=== PATIENT | female | born 1990 | race Caucasian/White ===

== ENCOUNTER 2023-11-27 02:59 | Emergency (ER) | payer MEDICAID ==
[~2023-11-27] VITALS: Ht 157.4 cm; Wt 66.7 kg
[2023-11-27 03:26] LABS: HEMATOCRIT 39.5 % (37.0-47.0); MANUAL DIFF REFLEX YES; MEAN CORPUSCULAR HGB 29.5 pg (27.0-31.0); MEAN CORPUSCULAR HGB CONC 33.2 g/dl (33.0-37.0); PLATELET COUNT AUTOMATED 355 10*3/uL (130-400); RED BLOOD COUNT 4.44 10*6/uL (4.10-5.10); RED CELL DISTRI WIDTH 14.4 % (0-14.5); WHITE BLOOD COUNT 21.5 10*3/uL (4.8-10.8)
[2023-11-27] MEDS ORDERED: Ondansetron Hydrochloride 4 MG TAB SL ONE (03:35)
[2023-11-27 03:52] LABS: PLATELET SUFFICIENCY NORMAL (NORMAL); TOTAL CELLS COUNTED 100 #CELLS
[2023-11-27 04:15] LABS: BILIRUBIN Negative (Negative); BLOOD Negative (Negative); CLARITY Turbid (Clear); COLOR Yellow (Yellow); GLUCOSE Negative (Negative); KETONE 1+ (Negative); LEUKO ESTERASE 1+ (Negative); NITRITE Negative (Negative); SPECIFIC GRAVITY 1.025 (1.001-1.030)
[2023-11-27 04:20] LABS: ALKALINE PHOSPHATASE 91 U/L (46-116); BUN 8 mg/dl (9-23); CHLORIDE 105 mmol/L (98-107); ETHYL ALCOHOL < 3.0 mg/dl (<3); POTASSIUM 3.6 mmol/L (3.4-5.1); SGPT/ALT 55 U/L (5-49); TOTAL PROTEIN 7.6 gm/dL (6.0-8.0)
[2023-11-27 04:22] LABS: URINE AMPHETAMINES Negative (1000ng/ml); URINE BARBITURATES Negative (200ng/ml); URINE BENZODIAZEPINES Positive (200ng/ml); URINE CANNABINOIDS (THC) Negative (50ng/ml); URINE COCAINE Negative (300ng/ml); URINE METHADONE Negative (300ng/ml); URINE OPIATES Negative (300ng/ml); URINE PHENCYCLIDINE Negative (25ng/ml)
[2023-11-27 04:39] LABS: EPITHELIAL CELLS TNTC; WBC 16-20 wbc/hpf (0-5)
[2023-11-27] MEDS ORDERED: AMOX-CLAV 875-1 EACH PO (05:34)
== END 2023-11-27 05:53 | disposition home or self-care (01) ==
LOC: ED 02:59
PROVIDERS: Internal Medicine
DX: O99.350 Diseases of the nervous system complicating pregnancy, unspecified trimester (principal); R56.9 Unspecified convulsions; O23.90 Unspecified genitourinary tract infection in pregnancy, unspecified trimester; B96.89 Other specified bacterial agents as the cause of diseases classified elsewhere; O99.119 Other diseases of the blood and blood-forming organs and certain disorders involving the immune mechanism complicating pregnancy, unspecified trimester; D72.89 Other specified disorders of white blood cells; R79.89 Other specified abnormal findings of blood chemistry; Z3A.00 Weeks of gestation of pregnancy not specified

== ENCOUNTER 2023-11-27 20:28 | Emergency (ER) | payer MEDICAID ==
[~2023-11-27] VITALS: Ht 157.4 cm; Wt 64.4 kg
[~2023-11-27 20:28] MED LIST: AMOX-CLAV 875-1 EACH PO
[2023-11-27] MEDS ORDERED: SODIUM CHLORIDE 0.9% 1,000 ML IV ONE ×2 (21:20→22:25)
[2023-11-27] MEDS ORDERED: Ondansetron Hydrochloride 4 MG/2 ML VIAL IV ONE ×3 (21:20→23:35)
[2023-11-27 21:40] LABS: HEMATOCRIT 43.5 % (37.0-47.0); MEAN CELL VOLUME 87.7 fl (81.0-99.0); MEAN CORPUSCULAR HGB 29.8 pg (27.0-31.0); MEAN PLATELET VOLUME 9.2 fl (9.6-12.3); PLATELET COUNT AUTOMATED 431 10*3/uL (130-400); RED BLOOD COUNT 4.96 10*6/uL (4.10-5.10); RED CELL DISTRI WIDTH 14.2 % (0-14.5); WHITE BLOOD COUNT 29.9 10*3/uL (4.8-10.8)
[2023-11-27 21:42] LABS: MANUAL DIFF REFLEX YES
[2023-11-27 21:57] LABS: BUN 17 mg/dl (9-23); CHLORIDE 99 mmol/L (98-107); POTASSIUM 3.6 mmol/L (3.4-5.1)
[2023-11-27 21:58] LABS: PLATELET SUFFICIENCY HIGH (NORMAL); TOTAL CELLS COUNTED 100 #CELLS
[2023-11-27 22:00] LABS: BURR CELLS FEW; ROULEAUX SLIGHT
[2023-11-27 22:01] LABS: OVALOCYTES FEW
[2023-11-28 01:57] LABS: HEMATOCRIT 37.1 % (37.0-47.0); MEAN CELL VOLUME 89.4 fl (81.0-99.0); MEAN CORPUSCULAR HGB 29.6 pg (27.0-31.0); MEAN CORPUSCULAR HGB CONC 33.2 g/dl (33.0-37.0); MEAN PLATELET VOLUME 9.3 fl (9.6-12.3); PLATELET COUNT AUTOMATED 382 10*3/uL (130-400); RED BLOOD COUNT 4.15 10*6/uL (4.10-5.10); RED CELL DISTRI WIDTH 14.4 % (0-14.5); WHITE BLOOD COUNT 29.6 10*3/uL (4.8-10.8)
[2023-11-28 01:58] LABS: MANUAL DIFF REFLEX YES
[2023-11-28 02:37] LABS: PLATELET SUFFICIENCY NORMAL (NORMAL); TOTAL CELLS COUNTED 100 #CELLS
[2023-11-28 02:44] LABS: BUN 14 mg/dl (9-23); CHLORIDE 104 mmol/L (98-107); POTASSIUM 3.3 mmol/L (3.4-5.1)
== END 2023-11-28 03:11 | disposition short-term general hospital (02) ==
LOC: ED 20:28
PROVIDERS: Internal Medicine
DX: O21.8 Other vomiting complicating pregnancy (principal); O99.281 Endocrine, nutritional and metabolic diseases complicating pregnancy, first trimester; E87.6 Hypokalemia; O99.119 Other diseases of the blood and blood-forming organs and certain disorders involving the immune mechanism complicating pregnancy, unspecified trimester; D72.829 Elevated white blood cell count, unspecified; Z3A.12 12 weeks gestation of pregnancy; Z53.29 Procedure and treatment not carried out because of patient's decision for other reasons

== ENCOUNTER 2023-12-31 10:28 | Emergency (ER) | payer MEDICAID ==
[~2023-12-31] VITALS: Ht 157.4 cm; Wt 68.0 kg
[2023-12-31] MEDS ORDERED: SODIUM CHLORIDE 0.9% 1,000 ML IV ONE ×2 (11:35→15:25)
[2023-12-31 11:54] LABS: HEMATOCRIT 40.5 % (37.0-47.0); MEAN CELL VOLUME 89.6 fl (81.0-99.0); MEAN CORPUSCULAR HGB 30.1 pg (27.0-31.0); MEAN CORPUSCULAR HGB CONC 33.6 g/dl (33.0-37.0); MEAN PLATELET VOLUME 8.9 fl (9.6-12.3); PLATELET COUNT AUTOMATED 411 10*3/uL (130-400); RED BLOOD COUNT 4.52 10*6/uL (4.10-5.10); RED CELL DISTRI WIDTH 13.9 % (0-14.5); WHITE BLOOD COUNT 21.1 10*3/uL (4.8-10.8)
[2023-12-31 11:57] LABS: MANUAL DIFF REFLEX YES
[2023-12-31] MEDS ORDERED: Ondansetron Hydrochloride 4 MG/2 ML VIAL IV ONE ×2 (12:00→16:25)
[2023-12-31] MEDS ORDERED: diphenhydrAMINE hydrochloride 50 MG/ML VIAL IV ONE (12:00)
[2023-12-31] MEDS ORDERED: ACETAMINOPHEN 325 MG TAB PO ONE (12:00)
[2023-12-31 12:13] LABS: BASOPHILS 1 % (0-1); PLATELET SUFFICIENCY HIGH (NORMAL); POLYCHROMASIA SLIGHT; TOTAL CELLS COUNTED 100 #CELLS
[2023-12-31 12:14] LABS: OVALOCYTES FEW
[2023-12-31 12:15] LABS: ALKALINE PHOSPHATASE 96 U/L (46-116); BUN 6 mg/dl (9-23); CHLORIDE 103 mmol/L (98-107); LIPASE 35 U/L (12-53); POTASSIUM 3.3 mmol/L (3.4-5.1); SGPT/ALT 14 U/L (5-49); TOTAL PROTEIN 7.8 gm/dL (6.0-8.0)
[2023-12-31] MEDS ORDERED: Promethazine Hydrochloride 25 MG/ML VIAL IM ONE (13:30)
[2023-12-31] MEDS ORDERED: FAMOTIDINE 50 ML IV ONE (13:35)
[2023-12-31] MEDS ORDERED: POTASSIUM CHLORIDE 20 MEQ TAB PO ONE (16:25)
[2023-12-31] MEDS ORDERED: REGLAN5 MG PO (16:27)
== END 2023-12-31 16:26 | disposition home or self-care (01) ==
LOC: ED 10:28
PROVIDERS: Nurse Practitioner Family
DX: O21.9 Vomiting of pregnancy, unspecified (principal); Z20.822 Contact with and (suspected) exposure to COVID-19; E87.6 Hypokalemia; E87.1 Hypo-osmolality and hyponatremia; Z3A.16 16 weeks gestation of pregnancy

== ENCOUNTER 2024-01-21 06:14 | Emergency (ER) | payer MEDICAID ==
[~2024-01-21] VITALS: Ht 157.4 cm; Wt 66.7 kg
[~2024-01-21 06:14] MED LIST changes: +REGLAN5 MG PO
[2024-01-21] MEDS ORDERED: Ondansetron Hydrochloride 4 MG/2 ML VIAL IV ONE (06:30)
[2024-01-21] MEDS ORDERED: SODIUM CHLORIDE 0.9% 1,000 ML IV ONE (06:30)
[2024-01-21 06:42] LABS: HEMATOCRIT 41.1 % (37.0-47.0); MEAN CELL VOLUME 90.1 fl (81.0-99.0); MEAN CORPUSCULAR HGB 29.6 pg (27.0-31.0); MEAN CORPUSCULAR HGB CONC 32.8 g/dl (33.0-37.0); MEAN PLATELET VOLUME 9.1 fl (9.6-12.3); PLATELET COUNT AUTOMATED 358 10*3/uL (130-400); RED BLOOD COUNT 4.56 10*6/uL (4.10-5.10); RED CELL DISTRI WIDTH 13.8 % (0-14.5); WHITE BLOOD COUNT 25.3 10*3/uL (4.8-10.8)
[2024-01-21 06:43] LABS: MANUAL DIFF REFLEX YES
[2024-01-21 07:01] LABS: BUN 8 mg/dl (9-23); CHLORIDE 101 mmol/L (98-107); POTASSIUM 3.5 mmol/L (3.4-5.1)
[2024-01-21] MEDS ORDERED: Promethazine Hydrochloride 25 MG/ML VIAL IV ONE (07:05)
[2024-01-21] MEDS ORDERED: diphenhydrAMINE hydrochloride 50 MG/ML VIAL IV ONE (07:05)
[2024-01-21 07:14] LABS: ATYPICAL LYMPHS 1 % (0-0); BASOPHILS 1 % (0-1); TOTAL CELLS COUNTED 100 #CELLS
[2024-01-21 07:17] LABS: POLYCHROMASIA SLIGHT; TOXIC GRANULATION SLIGHT; VACUOLATION OF NEUTROPHILS SLIGHT
[2024-01-21 07:18] LABS: PLATELET SUFFICIENCY NORMAL (NORMAL)
[2024-01-21] MEDS ORDERED: chlorproMAZINE Hydrochloride 50 MG/2 ML AMP IM ONE (08:15)
== END 2024-01-21 12:21 | disposition short-term general hospital (02) ==
LOC: ED 06:14
PROVIDERS: Internal Medicine
DX: O21.0 Mild hyperemesis gravidarum (principal); R42 Dizziness and giddiness; R61 Generalized hyperhidrosis; Z3A.20 20 weeks gestation of pregnancy